=== PATIENT | female | born 1965 | race Caucasian/White ===

== ENCOUNTER → 2024-12-11 07:59 | Outpatient (CLI) | payer OTHER, SELFPAY ==
--- NOTE | 2024-12-11 08:00 | DI.US.S_ITS ---
PROCEDURE: US ABDOMEN COMPLETE INDICATIONS: Pain. Evaluate Gallbladder and lump of mid abdominal area TECHNIQUE: Real-time scanning was performed of the abdominal and retroperitoneal organs, with image documentation. COMPARISON: None. FINDINGS: Liver: Liver is normal in size and homogeneous in echotexture. Liver is diffusely echogenic. Gallbladder: No gallstones. No wall thickening. No pericholecystic edema. Negative sonographic Sands's sign. Biliary ducts: Intrahepatic bile ducts are non-dilated. Extrahepatic bile duct caliber measures 6.1 mm. Normal is 6-7 mm or less in diameter, or 10 mm or less post-cholecystectomy. Pancreas: Visualized portions of the pancreas are sonographically normal. Tail of pancreas obscured by bowel gas and cannot be evaluated. Miscellaneous: No free abdominal fluid. 0.9 x 0.3 x 0.4 centimeter palpable lesion with increased echogenicity in the anterior right abdominal wall subcutaneous fat which may represent a lipoma; correlate with physical findings. IMPRESSION: Echogenic liver. Finding typically represents fatty infiltration; however, finding is nonspecific and correlation with clinical and laboratory findings is recommended to exclude other etiologies including hepatic cirrhosis. No sonographic evidence of cholelithiasis or cholecystitis. If there is continued clinical concern for cholecystitis, a nuclear medicine HIDA scan should be considered for further evaluation. 0.9 x 0.3 x 0.4 centimeter slightly hyperechoic lesion in the subcutaneous fat in the region of clinical interest concerning for lipoma. Correlate with clinical data. Decision to biopsy should be based on clinical assessment. Dictated by: Malu Kline MD, PhD on 12/11/2024 at 12:58 Approved by: Malu Kline MD, PhD on 12/11/2024 at 13:00
--- NOTE | 2024-12-11 08:00 | DI.MG.S_ITS ---
MM diagnostic mammo unilat RT: 12/11/2024. BI-RADS: 4A CLINICAL: 58-year old female for right diagnostic mammogram that is a recall from screening on 11/23/2024. Tyrer-Cuzick lifetime risk of 9.6%. No personal or first-degree family history of breast cancer. PRIOR EXAMS Mammogram(s): 11/23/2024. MAMMOGRAPHY TECHNIQUE: 2D and 3D (tomosynthesis) digital mammographic views obtained, with additional images as needed for full coverage. Current study was also evaluated with a Computer Aided Detection (CAD) system. DENSITY Right: B. There are scattered areas of fibroglandular density. MAMMOGRAPHY FINDINGS Right: Upper Outer at 10:00, Middle depth, measuring 0.5cm: Correlating with findings on screening mammogram there are grouped coarse heterogeneous calcifications. Right: Inner at 3:00, Posterior depth. Previous report: MLO only, Central: There are skin calcifications. These calcifications are not well seen on the magnified ML or LM view. These likely correlate to the calcifications seen on screening mammogram. IMPRESSION: Right (Calcification): Upper Outer at 10:00, Middle depth, measuring 0.5cm * Low Suspicion for Malignancy. Right (Calcification): Inner at 3:00, Posterior depth. Previous report: MLO only, Central * Probably Benign. RECOMMENDATIONS Right: Inner at 3:00, Posterior depth * Six month followup with diagnostic mammography. Right: Upper Outer at 10:00, Middle depth * Stereotactic-guided biopsy for further evaluation. COMMENTS: Findings and recommendations regarding the biopsy were conveyed to the patient during today's evaluation. OVERALL ASSESSMENT CATEGORY BI-RADS-4: Suspicious. ELECTRONICALLY SIGNED: Miguelina Brice M.D. on 12/11/2024 at 11:53:42 AM PT Interpreting Station ID: [id number]
== END ==
LOC: US 07:59
PROVIDERS: PCP Student in an Organized Health Care Education/Training Program; Referring Provider Student in an Organized Health Care Education/Training Program; Visit Provider Student in an Organized Health Care Education/Training Program
DX: R92.8 Other abnormal and inconclusive findings on diagnostic imaging of breast (principal); R92.1 Mammographic calcification found on diagnostic imaging of breast; R92.321 Mammographic fibroglandular density, right breast; K80.50 Calculus of bile duct without cholangitis or cholecystitis without obstruction; R19.09 Other intra-abdominal and pelvic swelling, mass and lump
CPT/HCPCS: 76700; 77065; G0279

== ENCOUNTER → 2025-02-02 08:21 | Outpatient (CLI) | payer OTHER, SELFPAY ==
[2025-02-02 10:17] LABS: Add Manual Diff / Slide Review NO; Hematocrit 42.6 % (36-46); Hemoglobin 14.9 g/dL (12.0-16.0); Lymphocytes Absolute Auto 2900 /uL (1100-4500); Mean Corpuscular HGB Conc 34.9 % (30-36); Mean Corpuscular Hemoglobin 28.3 PG (26-34); Mean Corpuscular Volume 81.2 fL (80-100); Platelet Count 303 X10^3/uL (150-400)
[2025-02-02 10:28] LABS: Hemoglobin A1C% w Est Avg Glu 8.2 % (4.0-6.0)
[2025-02-02 10:41] LABS: Alanine Aminotransferase 39 IU/L (<35); Albumin 4.3 g/dL (3.5-5.0); Albumin Globulin Ratio 1.4 (1.0-2.8); Alkaline Phosphatase 95 U/L (38-126); Blood Urea Nitrogen 13 mg/dL (7-17); Calcium 9.2 mg/dL (8.4-10.2); Carbon Dioxide 27 mmol/L (22-32); Chloride 98 mmol/L (98-107); Cholesterol 186 mg/dL (140-199); Estimated Glomerular Filt Rate > 60 mL/min (>60); Globulin 3.0 g/dL (1.7-4.1); Glucose 148 mg/dL (70-99); HDL Cholesterol 77 mg/dL (40-60); HEMOLYSIS < 15 (0-50); Potassium 4.4 mmol/L (3.4-5.1); Sodium 135 mmol/L (137-145); Total Protein 7.3 g/dL (6.3-8.2); Triglycerides 100 mg/dL (35-150)
[2025-02-02 11:53] LABS: Microalbumi Creatinin Ratio Ur 6.0 ug/mg CR (<30)
== END ==
PROVIDERS: PCP Student in an Organized Health Care Education/Training Program; Referring Provider Student in an Organized Health Care Education/Training Program; Visit Provider Student in an Organized Health Care Education/Training Program
DX: E11.9 Type 2 diabetes mellitus without complications (principal); I10 Essential (primary) hypertension
CPT/HCPCS: 36415; 80053; 80061; 82043; 82570; 83036; 85025

== ENCOUNTER → 2025-02-13 10:49 | Outpatient (CLI) | payer OTHER, SELFPAY ==
--- OUTSIDE RECORDS SUMMARY | 2025-02-15 15:20 | XMS_ITS | Clinical Summary ---
Author Organization [facility] Address [address] [place] [address] Care Team Providers Care Cream Dumper Name Role Phone Aimee Rich MD Primary Care Provider [phone]- [phone] Encounters Date Type Department Care Team Description 12/19/2024 12:56 PM PDT - 12/19/2024 11:59 PM PDT Hospital Encounter [facility] Mammography [address], [place] [phone] Abnormal mammogram of right breast; Breast calcification, right Discharge Disposition: Home/Self Care 12/19/2024 12:56 PM PDT - 12/19/2024 11:59 PM PDT Hospital Encounter [facility] Mammography [address], [place] [phone] Abnormal mammogram of right breast; Breast calcification, right Discharge Disposition: Home/Self Care from Last 3 Months Social History Tobacco Use Types Packs/Day Years Used Date Smoking Tobacco: Never Assessed Comments Unknown Sex and Gender Information Value Date Recorded Sex Assigned at Not on file Legal Sex Female 10:36 AM PDT Gender Identity Not on file Sexual Orientation Not on file Plan of Treatment Upcoming Encounters Date Type Department Care Team (Late st Contact Info) Description 03/04/2025 2:00 PM PST Office Visit [facility] [address] [phone] Kavya Goodson DPM [address] [place] [phone] Health Maintenance Due Date Last Done Comments Depression Screening (PHQ-2) 1979 Cervical Cancer Screening Combined Topic 12/23/1997 Cervical Cancer-Pap screening 12/23/1997 HPV/Cotest 12/23/1997 Colorectal Cancer Screening (Colonoscopy) 12/23/2012 Colorectal Cancer Screening (FOBT) 12/23/2012 Colorectal Cancer Screening (Fecal DNA) 12/23/2012 Colorectal Cancer Screening Combined 12/23/2012 COVID-19 Vaccine ( season) 2024 01/06/2024, 01/17/2023, 01/09/2022, Additional history exists Influenza Vaccine (#1) 2024 , 01/17/2023, 01/09/2022, Additional history exists Breast Cancer Screening 12/19/2026 12/19/2024, 12/19 DTaP,Tdap,and Td Vaccines (2 - Td or Tdap) 02/28/2034 02/29/2024 RSV Patients Over 60 years OR qualifying ( Patients) (1 - 1-dose 75+ series) 12/23/2042 HM Pneumococcal Adult 50+ Completed 03/29/2024 Hepatitis B Vaccines Completed 03/29/2024, 02/29/20 MMR Vaccines Completed 03/29/2024, 02/29/2024 Zoster Vaccines Completed 06/19/2024, 02/29/2024 HPV Vaccines Aged Out No longer eligi ble based on patient's age to complete this topic Hepatitis A Vaccines Aged Out No long er eligible based on patient's age to complete this topic IPV Vaccines Aged Out No longer eligi ble based on patient's age to complete this topic Procedures Procedure Name Priority Date/Time Associated Diagnosis Comments MG DIGITAL BREAST TOMOSYNTHESIS BREAST BIOPSY RIGHT Routine 12/19/2024 2:19 PM PDT Abnormal mammogram of right breast Breast calcification, right SURGICAL PATHOLOGY Routine 12/19/2024 2: 15 PM PDT MG BREAST SPECIMEN RIGHT Routine 12/19/2024 2:02 PM PDT Abnormal mammogram of right breast Breast calcification, right from Last 3 Months Results * MG DIGITAL BREAST TOMOSYNTHESIS BREAST BIOPSY RIGHT (12/19/2024 2:19 PM PDT) Anatomical Region Laterality Modality Right Mammography Addenda Addendum by Abi Diehl MD on 2024 11:49 AM PDT ADDENDA: * ADDENDUM: This addendum is to reflect Radiology-Pathology correlation as follows: RAD-PATH CORRELATION: Concordant. Rad-Path Correlation changed from Pending. ELECTRONICALLY SIGNED: Abi Diehl M.D. on 2024 at 11:49:13 AM. UPDATED PATHOLOGY Right Breast: Upper Outer at 10:00, Mid-Depth: Benign Classification: Benign fibrofatty breast parenchyma with areas of fibroadenomatoid changes and calcification. Radiologist-Pathologist Correlation: Concordant. UPDATED RECOMMENDATIONS Right * Recommend 6 month follow up of previously described probably benign calcifications in the right breast at 3 o'clock posterior depth on diagnostic report 12/11/2024 (In six months). Narrative 12/19/2024 3:53 PM PDT [facility] [address] [place] [address] Patient: PATRICIA SWAIN. Gender: Female Date of : 1965. Age: 58 MPI: [id number] Acc: [id number] MG DIGITAL BREAST TOMOSYNTHESIS BREAST BIOPSY RIGHT: 12/19/2024. Rad-Path Correlation: Pending CLINICAL: 58-year old female for right procedure that resulted from diagnostic mammogram on 12/11/2024. Patient presents for stereotactic biopsy of suspicious calcifications. Tyrer-Cuzick lifetime risk of 9.6%. No personal or first-degree family history of breast cancer. PRIOR [facility] - 12/11/2024, 11/23/2024. CONSENT Risks including but not limited to bleeding and infection, benefits and alternatives were discussed with the patient. The patient agreed to the procedure and signed informed consent. Time out procedure was used. ROUTINE Right: Patient positioned in an upright position, prepped and draped in the usual manner using sterile technique. TECHNIQUE Right Breast: Upper Outer at 10:00, Mid-Depth: Morphology: Calcifications measurin.6cm. Procedure: Stereotactically-guided vacuum-assisted biopsy of calcifications with Coil-shaped marker placement. Device: 9-gauge vacuum-assisted biopsy instrument. [employer](R) Brevera 9g. Approach: Superior. Anesthesia: Local anesthesia obtained using 1%-lidocaine. Secondary local anesthesia obtained using 1%-lidocaine with epinephrine. Skin Entry: Incision with #11 blade. Passes: 4. Targeting Confirmation: Additional Images, Specimen Imaging, and Post-Procedure Imaging. Marker Placement: Coil marker placed in target location inferior. Specimen Imaging: Imaging shows calcifications present within specimen. Post-procedure imaging: shows the marker to be 1.4 cm inferior from target location. Rad/Path Correlation: Pending receipt of pathology report. Conclusion: Stereotactically-guided Vacuum-assisted biopsy with post-procedure CC and ML mammographic views with marker placement, Right Breast: Upper Outer at 10:00, Mid-Depth POST-PROCEDURE NOTE Accordion effect resulting in clip migration. The clip is located 1.4 cm inferior to the biopsy site. COMPLICATIONS: No complications were encountered while the patient was in our department. DISPOSITION The patient left our department in good condition with aftercare instructions and urged to contact us should any problem arise. SUMMARY Right Breast: Upper Outer at 10:00, Mid-Depth: Stereotactically-guided vacuum-assisted biopsy of calcifications with Coil-shaped marker placement. PATHOLOGY Right Breast: Upper Outer at 10:00, Mid-Depth: Radiologist-Pathologist Correlation: Pending receipt of pathology report. ELECTRONICALLY SIGNED: Stephon Ayala M.D. on 12/19/2024 at 03:53:30 PM PT Interpreting Station ID: [id number] Procedure Note Stephon Ayala MD / Abi Diehl MD - 12/22/2024 [facility] [address] [place] [id number] Patient: PATRICIA SWAIN. Gender: Female Date of : 1965. Age: 58 MPI: [id number] Acc: [id number] MG DIGITAL BREAST TOMOSYNTHESIS BREAST BIOPSY RIGHT: 12/19/2024. Rad- PathCorrelation: Pending CLINICAL: 58-year old female for right procedure that resulted fromdiagnostic mammogram on 12/11/2024. Patient presents for stereotacticbiopsy of suspicious calcifications. Tyrer-Cuzick lifetime risk of 9.6%.No personal or first-degree family history of breast cancer. PRIOR [facility] [place] - 12/11/2024, 11/23/2024. CONSENT Risks including but not limited to bleeding and infection, benefitsand alternatives were discussed with the patient. The patient agreed tothe procedure and signed informed consent. Time out procedure was used. ROUTINE Right: Patient positioned in an upright position, prepped anddraped in the usual manner using sterile technique. TECHNIQUE Right Breast: Upper Outer at 10:00, Mid-Depth: Morphology: Calcifications measurin.6cm. Procedure: Stereotactically-guided vacuum-assisted biopsy ofcalcifications with Coil-shaped marker placement. Device: 9-gauge vacuum-assisted biopsy instrument. Nambii(R)Celenovera 9g. Approach: Superior. Anesthesia: Local anesthesia obtained using 1%-lidocaine.Secondary local anesthesia obtained using 1%-lidocaine with epinephrine. Skin Entry: Incision with #11 blade. Passes: 4. Targeting Confirmation: Additional Images, Specimen Imaging, andPost-Procedure Imaging. Marker Placement: Coil marker placed in target location inferior. Specimen Imaging: Imaging shows calcifications present withinspecimen. Post-procedure imaging: shows the marker to be 1.4 cm inferiorfrom target location. Rad/Path Correlation: Pending receipt of pathology report. Conclusion: Stereotactically-guided Vacuum-assisted biopsy withpost-procedure CC and ML mammographic views with marker placement, RightBreast: Upper Outer at 10:00, Mid-Depth POST-PROCEDURE NOTE Accordion effect resulting in clip migration. The clip is located1.4 cm inferior to the biopsy site. COMPLICATIONS: No complications were encountered while the patient was inour department. DISPOSITION The patient left our department in good condition with aftercareinstructions and urged to contact us should any problem arise. SUMMARY Right Breast: Upper Outer at 10:00, Mid-Depth:Stereotactically-guided vacuum- assisted biopsy of calcifications withCoil-shaped marker placement. PATHOLOGY Right Breast: Upper Outer at 10:00, Mid-Depth: Radiologist-Pathologist Correlation: Pending receipt of pathologyreport. ELECTRONICALLY SIGNED: Stephon Ayala M.D. on 12/19/2024 at 03:53:30 PM PT Interpreting Station ID: [id number] us Aimee Rich MD [facility] MG PROCEDURES Edit ed Result - Final * Surgical Pathology (12/19/2024 2:15 PM PDT) Pathology Final Diagnosis SEE DETAILS 12/21/2024 8:57 AM PDT [facility] Comment: Patient: PATRICIA SWAIN Case: [id number] Result ID: [id number] Ordering Provider: AIMEE STEWART MD Collected Date: 12/19/24 Clinical History: Right breast at 10 o'clock, radiograph positive for calcification. FINAL DIAGNOSIS RIGHT BREAST AT 10 O'CLOCK FOR CALCIFICATION, ULTRASOUND GUIDED CORE BIOPSIES: A. Benign fibrofatty breast parenchyma with areas of fibroadenomatoid changes and calcification. B. Negative for atypical duct hyperplasia, in situ or invasive carcinoma. Electronically signed by Lena Lemons MD Pathologist 12/21/2024 08:57 GROSS DESCRIPTION: Received in formalin designated Patricia Swain designated per the requisition breast, right, RT 10 o'clock are multiple needle core pieces of fibrofatty tissue, which are entirely submitted in cassettes 1A through 1C. Total formalin fixation time is greater than 6 hours. (ANURADHA/vaibhav) Technical component performed at [facility], [address] [place] [address], CLIA: [id number]. MICROSCOPIC DESCRIPTION Sections contain multiple fragments of fibrofatty breast parenchyma with areas of stromal hyperplasia surrounding and compressing benign appearing ducts with prominent nodular calcification. There is no atypical duct hyperplasia, in situ or invasive carcinoma identified. (BHUMI/jn) Whole slide digital imaging via A[employer]Leica GT450 imaging system was employed in this evaluation. [facility] [address] [facility] [place] [address] [place] [address] CLIA: [id number] End of Report Tissue Non-blood Collection / Unknown 12/19/2024 2:15 PM PDT 12/19/2024 2:15 PM PDT us Aimee Rich MD LAB PATHOLOGY/CYTOLOGY ORD ERABLES Final Result ANGIE GUILLEN [address] [facility], [address] [place] [address], * MG BREAST SPECIMEN RIGHT (12/19/2024 2:02 PM PDT) Anatomical Region Laterality Modality Right Mammography Impressions 12/19/2024 2:17 PM PDT IMPRESSION: * Stereotactic biopsy specimen contains the targeted calcifications. Narrative 12/19/2024 2:17 PM PDT [address] [address] Patient: PATRICIA SWAIN. Gender: Female Date of : 1965. Age: 58 MPI: [id number] Acc: [id number] MG BREAST SPECIMEN RIGHT: 12/19/2024. CLINICAL: 58-year old female for exam. RIGHT BREAST SPECIMEN. PRIOR [facility] - 12/11/2024, 11/23/2024. TECHNIQUE: Right specimen radiograph. FINDINGS Breast stereotactic biopsy specimen contains the targeted calcifications in cassettes B-D. ELECTRONICALLY SIGNED: Stephon Ayala M.D. on 12/19/2024 at 02:17:51 PM PT Interpreting Station ID: [id number] Procedure Note Lucy, Stephon Main MD - 12/19/[address] [address] Patient: PATRICIA SWAIN. Gender: Female Date of : 1965. Age: 58 MPI: [id number] Acc: [id number] MG BREAST SPECIMEN RIGHT: 12/19/2024. CLINICAL: 58-year old female for exam. RIGHT BREAST SPECIMEN. [facility]IOR [facility] - 12/11/2024, 11/23/2024. TECHNIQUE: Right specimen radiograph. FINDINGS Breast stereotactic biopsy specimen contains the targetedcalcifications in cassettes B-D. ELECTRONICALLY SIGNED: Stephon Ayala M.D. on 12/19/2024 at 02:17:51 PM PT Interpreting Station ID: [id number] IMPRESSION: * Stereotactic biopsy specimen contains the targetedcalcifications. Aimee Rich MD [facility] MG PROCEDURES Gloria l Result from Last [address] [facility] Care Teams Cream Dumper Relationship Specialty Start Date End Date Aimee Rich MD [address] [place] [id number] PCP - General Family Medicine 12/14/24
--- NOTE | 2025-03-08 11:22 | DIAB.MNT ---
Initial Diabetes Medical Nutrition Therapy Assessment Name: Mishel Swain Date: 02/13/25 Time: 11a-12p Dx: Type II Diabetes Provider: Tomasa Preferred Learning Style: Doing, Watching, Reading Mishel presents for initial Dm visit. Newly dx wtih T2Dm with hgA1c in 10/2024 at 11.2% and reduced more recently 01/2025 at 8.2%. UTD on eye appt. not checking feet. FH of DM with father. States her biggest concern is neuropathy she has had x 1 year. Endorses poor sleep as a result. Prior to dx, endorses wt of 225#, unintentional wt loss down to 180-185#. Denies excessive thirst of urination. Did have LE paina nd weakness per report. Has some questions about supplements and medication interactions. She feels the most overwhelming part of DM is can I change my habits states she needs to take baby steps Diet Recall: 930: banana, robledo yogurt, granola 12p: baby carrots, butternut squash muffin OR monica chx nuggets 8 with bbq sauce OR pb celery 4-5p: creamy chx rice soup with 1/4c crackers and biscuit and butternut squash crustless pie OR porkchop with stuffing top OR chx with rice x 1c and carrots +/- broccoli 9p: mint tea sn; nothing or homemade muffin water 40-50oz occasional oj or hot cocoa Lives with her mother, eat together. Anthropometrics: Ht: 66 Wt: 191.5# 01/2025 Weight history: Physical Activity: Exercise bike infrequently, especially when her legs bother her. Walking inconsistent. Self-Monitoring Blood Glucose: None but interested. Encouraged her to reach out to PCP for rx prn. Date Pre Post Pre Post Pre Post HS Diabetes Medications: 500mg Metformin BID 0.5mg Semaglutide weekly Pertinent Labs: hgA1c: 8.2% 01/2025 Past Medical History: Reported HTN, HLD, LE neuropathy Nutrition Rx: Carbohydrates: Meal: 30-45g Snack: 15-30g Nutrition Diagnosis: - Nutrition and food related knowledge deficit r/t newly dx aeb pt report, hga1c Intervention: This participant was very receptive. Provided appropriate educational handouts. Discussed the following topics: Completed intake assessment. Discussed barriers to care. Pathophysiology of T2DM HgA1c, its correlation to blood glucose numbers, and rationale for goal Potential for self-monitoring Plate Method, impact of macronutrients on blood sugar, meal timing, carbohydrate counting, pairing macronutrients and spreading out carbohydrates for better blood glucose management Recommended servings for carbohydrates at meals and snacks Heart health nutrition Brainstormed appropriate meal plan based on food preferences Role of physical activity and following provider guidelines for safety Created SMART goals for patient self-care and success. Goals: Try a flavored Cuban yogurt Add protein to each meal/snack Follow-up: KELL CANTU follow-up in 3-4 weeks Genny Arvizu RDN, PEPE Certified Diabetes Care and Import Clerk P: [phone] Thank you for this referral
== END ==
LOC: DIET 10:49
PROVIDERS: PCP Student in an Organized Health Care Education/Training Program; Referring Provider Student in an Organized Health Care Education/Training Program
DX: E11.9 Type 2 diabetes mellitus without complications (principal); Z71.3 Dietary counseling and surveillance; Z79.84 Long term (current) use of oral hypoglycemic drugs; Z79.85 Long-term (current) use of injectable non-insulin antidiabetic drugs
CPT/HCPCS: 97802

== ENCOUNTER → 2025-03-14 10:56 | Outpatient (CLI) | payer OTHER, SELFPAY ==
--- NOTE | 2025-03-29 08:47 | DIAB.MNTFU ---
Follow-up Diabetes Medical Nutrition Therapy Assessment Name: Mishel Swain Date: 03/14/25 Time: [id number] Dx: Type II Diabetes Provider: Tomasa Mishel presents for Dm visit. Newly dx wtih T2Dm with hgA1c in 10/2024 at 11.2% and reduced more recently 01/2025 at 8.2%. States she needs to take baby steps to make lifestyle change. Tried flavored [place] yogurt. States she needs to eat more veggies. Adding more spinach to sandwiches. Eating veggies 1x per day. Aiming for smaller portions in general. One night had nausea, belching, tried to vomit. Endorses higher fat intake that day, ie hamburger and sausage Has questions about taking supplements for nutrients. Diet Recall: 930: banana, [place] yogurt, granola OR sausage with egg bagel 12p: baby carrots and pb celery sn: nothing or 1-2 mandarin oranges OR chips 4-5p: hamburger with part of bun sn: beef jerky OR 1-2 mandarin oranges OR nuts water 40-50oz d/c juice less hot cocoa Lives with her mother, eat together. Anthropometrics: Ht: 66 Wt: 185# 02/2025 reported 191.5# 01/2025 Weight history: Physical Activity: No exercise bike. More walks when weather is nice, 20 mins. Self-Monitoring Blood Glucose: None but interested. Encouraged her to reach out to PCP for rx prn. Date Pre Post Pre Post Pre Post HS Diabetes Medications: 500mg Metformin BID 0.5mg Semaglutide weekly Pertinent Labs: hgA1c: 8.2% 01/2025 Past Medical History: Reported HTN, HLD, LE neuropathy Nutrition Rx: Carbohydrates: Meal: 30-45gSnack: 15-30g Nutrition Diagnosis: - Nutrition and food related knowledge deficit r/t newly dx aeb pt report, hga1c - Excessive fat intake r/t nutrition knowledge deficit aeb diet recall, nausea symptoms likely r/t fat intake and GLP1 - Predicted inadequate fiber intake r/t limited whole grains and veggies aeb diet recall Intervention: This participant was very receptive. Provided appropriate educational handouts. Discussed the following topics: Portion recs Strategies for veggie intake Fat intake and GLP1 Foods vs supplements for nutrients Physical activity goals Created SMART goals for patient self-care and success. Goals: Try a flavored [place]ican yogurt- met Add protein to each meal/snack- in progress Try to avoid high fat proteins- new Aim for veggies 2x per day- new Follow-up: KELL CANTU follow-up in 3-4 weeks Genny Arvizu RDN, PEPE Certified Diabetes Care and Pocket Secretary Assembler P: [phone] Thank you for this referral
== END ==
LOC: DIET 10:57
PROVIDERS: PCP Student in an Organized Health Care Education/Training Program; Referring Provider Student in an Organized Health Care Education/Training Program
DX: E11.9 Type 2 diabetes mellitus without complications (principal); Z71.3 Dietary counseling and surveillance; Z79.84 Long term (current) use of oral hypoglycemic drugs; Z79.85 Long-term (current) use of injectable non-insulin antidiabetic drugs
CPT/HCPCS: 97802